=== PATIENT | male | born 1975 | race Hispanic/Latino ===

== ENCOUNTER → 2024-10-26 | Day surgery (SDC) | payer BC ==
[~2024-10-26] MED LIST: CRESTOR10 MG PO; LIDOCAINE HCL 2% LOCAL INJ 5 ML SDV VIAL INJ ONE; LOSARTAN POTAS100 MG PO; MIDAZOLAM HCL 2 MG/2 ML VIAL ONE; PROPOFOL IV EMULSION 10 MG/ML 20 ML VIAL ONE
[2024-10-26] MEDS: LACTATED RINGER'S 1,000 ML ONE (12:22)
[2024-10-26 13:54] VITALS: TEMP 97.4
[2024-10-26 14:15] VITALS: BP 114/81; PULSE 76; RESP 18; O2SAT 99
== END | disposition home or self-care (01) ==
LOC: OR 11:22
PROVIDERS: ATTEND Internal Medicine Gastroenterology
DX: Z12.11 Encounter for screening for malignant neoplasm of colon (principal); D12.4 Benign neoplasm of descending colon; K57.30 Diverticulosis of large intestine without perforation or abscess without bleeding; K64.8 Other hemorrhoids; I10 Essential (primary) hypertension; Z68.31 Body mass index [BMI] 31.0-31.9, adult; Z01.810 Encounter for preprocedural cardiovascular examination
CPT/HCPCS: 45384; 93005; J2003; J2250; J2704; J7121; 45378